=== PATIENT | male | born 1960 | race African-American/Black ===

== ENCOUNTER 2021-06-18 02:51 | Emergency (ER) | payer MEDICAID ==
[~2021-06-18] VITALS: Ht 170.2 cm; Wt 91.0 kg
[2021-06-18 03:00] VITALS: BP 143/75
== END 2021-06-18 14:28 | disposition left against medical advice (07) ==
LOC: ER 02:51
DX: Z53.21 Procedure and treatment not carried out due to patient leaving prior to being seen by health care provider (principal)